=== PATIENT | female | born 1945 | race Caucasian/White ===

== ENCOUNTER 2016-07-08 05:03 | Day surgery (SDC) | payer MEDICARE, OTHER ==
[2016-07-01 16:52] LABS: BASOPHILS 0.3 %; BASOPHILS ABSOLUTE 0.02 10/3/uL (0.0-0.16); EOSINOPHILS 1.1 %; EOSINOPHILS ABSOLUTE 0.07 10/3/uL (0.0-0.53); HEMOGLOBIN 14.2 g/dL (12.0-16.0); IMMATURE GRANULOCYTES 0.2 %; IMMATURE GRANULOCYTES ABSOLUTE 0.01 10/3/uL (0.0-0.11); LYMPHOCYTES 33.8 %; LYMPHOCYTES ABSOLUTE 2.14 10/3/uL (0.67-4.30); MEAN CORPUS HGB CONC 33.8 g/dL (32.0-36.0); MEAN CORPUSCULAR HEMOGLOB 30.5 pg (26.0-34.0); MEAN CORPUSCULAR VOLUME 90.1 fL (80-100); MEAN PLATELET VOLUME 11.4 fL (9.2-13.0); MONOCYTES 7.3 %; MONOCYTES ABSOLUTE 0.46 10/3/uL (0.21-1.20); NEUTROPHILS 57.3 %; NEUTROPHILS ABSOLUTE 3.63 10/3/uL (2.02-8.40); PLATELET COUNT 227 10/3/uL (150-400); RBC DISTRIBUTION WIDTH 12.7 % (12.0-16.0); RED CELL COUNT 4.66 10/6/uL (4.0-5.6); WHITE BLOOD CELLS 6.3 10/3/uL (4.5-10.5)
[2016-07-01 16:54] LABS: MANUAL DIFF NO %
[2016-07-01 17:01] LABS: PARTIAL THROMBO TIME 24.9 SEC (22.5-37.2); PROTIME (NOT ORD) 13.2 SEC (12.0-14.5)
[2016-07-01 17:22] LABS: BUN (BLOOD UREA NITROGEN) 11 MG/DL (6-23); CALCIUM, SERUM 10.3 MG/DL (8.5-10.4); CHLORIDE, SERUM 101 MMOL/L (96-112); CO2 (CARBON DIOXIDE) 31 MMOL/L (24-34); GFR AFRICAN AMERICAN 88 ML/MIN (>=60); GFR NON AFRICAN AMERICAN 76 ML/MIN (>=60); GLUCOSE, SERUM 81 MG/DL (60-99); POTASSIUM, SERUM 4.5 MMOL/L (3.5-5.3); SODIUM, SERUM 139 MMOL/L (135-148)
--- NOTE | ~2016-07-08 | OP ---
Record Of Operation [facility] [address] [place]. [address] NAME: AMAURY BERNARD : 49 STATUS : [facility]#: [id number] AGE: 70 ADM/REG DATE : 07/08/16 MR#: [id number] REPORT SERV DATE: 07/12/16 DICTATED BY: FAN HAYNES DATE: 07/12/16 REPORT STATUS : Draft TRANSCRIBED BY: MODPj DATE: 07/12/16 DATE OF PROCEDURE: 07/08/2016 PREOPERATIVE DIAGNOSIS: Hyperparathyroidism. POSTOPERATIVE DIAGNOSIS: Hyperparathyroidism. OPERATIVE PROCEDURE PERFORMED: Right inferior parathyroidectomy with nerve integrity monitoring. INDICATIONS AND SIGNIFICANT HISTORY: The patient is a 70-year-old female with significant history of elevated serum calcium level and elevated ionized calcium and elevated parathyroid hormone level. SPECT CT scanning localized what appeared to be a problematic parathyroid gland in the right inferior area. This was confirmed with ultrasound, which also seemed to suggest right inferior parathyroid adenoma. The patient was felt to benefit from surgical therapy and was scheduled for such. OPERATIVE PROCEDURE AND FINDINGS: After informed consent was obtained, the patient was brought to the operating room and placed on the operating table in the supine position. At which point, general endotracheal anesthesia was induced by Anesthesia Service utilizing a NIM nerve monitoring tube. Once the NIM nerve monitor had been set up to monitor laryngeal musculature, skin was prepped and draped in standard sterile fashion of the anterior neck. A horizontal skin incision was made in the midline skin crease. Subplatysmal flaps were elevated superiorly and inferiorly and the strap muscles were divided midline and retracted laterally. The right thyroid lobe was then reflected medially with blunt dissection and inferior pole vessels were divided with Harmonic scalpel. This exposed what appeared to be a soft tissue bulge present within the right inferior pole of the thyroid gland medial to the carotid artery and lateral to the trachea. Blunt dissection freed approximately 1 cm brown, tannish mass in this area. Great caution was undertaken. Recurrent laryngeal nerve coursed in a tortuous course lateral to the soft tissue mass. It was stimulable both on identification and throughout the course of the case and even at the conclusion of the case. Lesion was sent to pathology, where hypercellular parathyroid was returned. We awaited postoperative PTH testing, where preoperatively PTH was 137.5, postoperatively approximately 10 minutes after removal of the left or the right inferior parathyroid gland at a full length of 23. This concluded the case. Wound was irrigated, was closed in multiple layers consisting of deep Vicryl suture, followed by closure of the skin with Prolene and Steri- Strips were applied. She was turned back toward anesthesia, aroused from anesthesia, and taken to the postanesthesia care unit in satisfactory condition. COMPLICATIONS: None. ESTIMATED BLOOD LOSS: Less than 5 mL. IV FLUIDS: Per anesthesia. Record Of Operation [address] [address] NAME: AMAURY BENRARD : 49 STATUS : [facility] PAT#: [id number] AGE: 70 ADM/REG DATE : 07/08/16 MR#: [id number] REPORT SERV DATE: 07/12/16 DICTATED BY: FAN HAYNES DATE: 07/12/16 REPORT STATUS : Draft TRANSCRIBED BY: RACHEL DATE: 07/12/16 DLSherrill/RACHEL Fan Haynes M.D. / [id number] CC: Nyasia Foy M.D.
[~2016-07-08 05:03] MED LIST: COZ50 PO; VIT D PO; ZOCOR20 PO
[2016-07-08 07:49] LABS: PTH (INTRAOPERATIVE) 137.5 PG/ML (10.0-65.0); PTH TAT 0 Hrs 18 Mins
[2016-07-08 08:39] LABS: PTH (INTRAOPERATIVE) 23.3 PG/ML (10.0-65.0); PTH TAT 0 Hrs 18 Mins
== END 2016-07-08 15:30 | disposition home or self-care (01) ==
LOC: SDC 05:03
PROVIDERS: Otolaryngology
PROC: 0GBN0ZZ Excision of Right Inferior Parathyroid Gland, Open Approach (ICD-10-PCS; principal; 2016-07-08 06:45)
DX: E21.3 Hyperparathyroidism, unspecified (principal); I10 Essential (primary) hypertension; E78.5 Hyperlipidemia, unspecified; Z85.828 Personal history of other malignant neoplasm of skin; Z88.6 Allergy status to analgesic agent; Z79.899 Other long term (current) drug therapy
CPT/HCPCS: 80048; 83970; 85025; 85610; 85730; 88305; 88331; 93005; A9270-GY; J0690; J2250; J2370; J2405; J2710; J3010